=== PATIENT | male | born 1990 | race Caucasian/White ===

== ENCOUNTER → 2016-12-30 | Outpatient (CLI) | payer OTHER ==
--- NOTE | ~2016-12-30 | ENPV ---
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 The left internal carotid artery has mild, 1-39%, plaque and stenosis. The right vertebral artery is present with antegrade flow. The left vertebral artery is present with antegrade flow. Repeat Exam in one year. Procedure Type of Study: Cerebral:Carotid, Carotid Doppler Bilateral. Indications for Study:Carotid Bruit. Appropriate Use Criteria:4 Blood Pressure:Right arm 143/81 mmHg.Left arm 145/88 mmHg. Patient Status:Routine. Study Location:Vascular Lab. Technical Quality:Good visualization. Velocities are measured in cm/s ; Diameters are measured in cm Carotid Right Measurements Carotid Left Measurements + +--------+--------+ + + + +--------+ --------+ + + !Location !PSV !EDV !Angle !%Stenosis ! !Location !PSV ! EDV !Angle !%Stenosis ! + +--------+--------+ + + + +--------+ --------+ + + !Prox CCA !163 !35 !60 ! ! !Prox CCA !134 ! 28 !54 ! ! + +--------+--------+ + + + +--------+ --------+ + + !Dist CCA !170 !39 !60 ! ! !Dist CCA !122 ! 33 !54 ! ! + +--------+--------+ + + + +--------+ --------+ + + !Prox ICA !158 !39 !60 ! ! !Prox ICA !71 ! 31 !54 ! ! + +--------+--------+ + + + +--------+ --------+ + + !Dist ICA !67 !26 !60 ! ! !Dist ICA !71 ! 30 !54 ! ! + +--------+--------+ + + + +--------+ --------+ + + !Prox ECA !154 ! !60 ! ! !Prox ECA !142 ! !54 ! ! + +--------+--------+ + + + +--------+ --------+ + + !Vertebral !36 ! !60 ! ! !Vertebral !27 ! !54 ! ! + +--------+--------+ + + + +--------+ --------+ + + !Subclavian !167 ! ! ! ! !Subclavian !164 ! ! ! ! + +--------+--------+ + + + +--------+ --------+ + + - There is antegrade vertebral flow noted on the right side. - There is antegrade verte bral flow noted on the left side. - Add'l Measurements:ICAPSV/CCAPSV 0.97.ICAEDV/CCAEDV 1.1. - Add'l Measurements:ICAPS V/CCAPSV 0.53.ICAEDV/CCAEDV 1.1. Signature dtt: LO ALEGRIA dtd: 12/30/16 1500 Physician Self Edit
== END | disposition disaster alternative care site (69) ==
LOC: GCAR 14:45
DX: R09.89 Other specified symptoms and signs involving the circulatory and respiratory systems (principal); I65.23 Occlusion and stenosis of bilateral carotid arteries